=== PATIENT | male | born 1985 | race Caucasian/White ===

== ENCOUNTER 2023-09-11 14:38 | Emergency (ER) | payer OTHER ==
[~2023-09-11] VITALS: Ht 182.9 cm; Wt 96.0 kg
[2023-09-11] MEDS: LIDOCAINE 2% MDV 20ML VIAL SC ONE (18:05)
[2023-09-11 18:56] VITALS: BP 130/82; TEMP 98.2; O2SAT 98
== END 2023-09-11 19:01 | disposition home or self-care (01) ==
LOC: M ED 14:38
DX: S01.112A Laceration without foreign body of left eyelid and periocular area, initial encounter (principal); X58.XXXA Exposure to other specified factors, initial encounter; Y92.9 Unspecified place or not applicable; Y93.9 Activity, unspecified; Y99.9 Unspecified external cause status; F17.290 Nicotine dependence, other tobacco product, uncomplicated

== ENCOUNTER 2024-01-08 09:25 | Day surgery (SDC) | payer OTHER ==
[~2024-01-08] VITALS: Ht 185.4 cm; Wt 95.1 kg
[~2024-01-08 09:25] MED LIST: ACETAMINOPHEN 1000MG 100ML IV BAG As Ordered ONE; LIDOCAINE 2% 100MG/5ML SDV (FOR ANES.) As Ordered ONE; LR 1,000 ML IV SCH; MIDAZOLAM INJ 2MG/2ML VIAL As Ordered ONE; ONDANSETRON 4MG 2ML VIAL As Ordered ONE; fentaNYL 100 MCG/2 ML INJECTION As Ordered ONE; propofoL 200 MG/20 ML VIAL As Ordered ONE
[2024-01-08] MEDS ORDERED: ROCURONIUM BROMIDE 50MG/5ML VIAL As Ordered ONE (09:57)
[2024-01-08] MEDS ORDERED: MIDAZOLAM INJ 2MG/2ML VIAL IV PRN (10:20)
[2024-01-08] MEDS ORDERED: LIDOCAINE 1% SDV 5ML VIAL PN ONE (10:20)
[2024-01-08] MEDS ORDERED: ROPIvacaine 0.5% 30ML VIAL PN ONE (10:20)
[2024-01-08] MEDS ORDERED: fentaNYL 100 MCG/2 ML INJECTION IV PRN (10:20)
[2024-01-08] MEDS: TRANEXAMIC ACID 100 MG/ML 10ML VIAL IV ONE (11:05)
[2024-01-08] MEDS: TRANEXAMIC ACID 100 MG/ML 10ML VIAL As Ordered ONE (11:30)
[2024-01-08] MEDS: ceFAZolin SOD 2 GM in IV 1 EA IV ONE (11:47)
[2024-01-08] MEDS: EPINEPHrine 1MG/ML INJ 30ML MD-VIAL As Ordered ONE (12:29)
[2024-01-08] MEDS ORDERED: MORPHINE 2 MG/ML 1ML VIAL IV PRN (12:35)
[2024-01-08] MEDS ORDERED: ONDANSETRON 4MG 2ML VIAL IV PRN (12:35)
[2024-01-08] MEDS: fentaNYL 100 MCG/2 ML INJECTION IV PRN (12:51)
[2024-01-08] MEDS ORDERED: LR 1,000 ML IV SCH (12:55)
[2024-01-08] MEDS: oxyCODONE 5MG TAB PO PRN (13:12)
[2024-01-08 13:43] VITALS: BP 146/65; TEMP 97; O2SAT 98
== END 2024-01-08 14:11 | disposition home or self-care (01) ==
LOC: M SDC 09:25
PROVIDERS: ATTEND Orthopaedic Surgery
DX: M23.232 Derangement of other medial meniscus due to old tear or injury, left knee (principal); M22.42 Chondromalacia patellae, left knee; M94.262 Chondromalacia, left knee; F17.290 Nicotine dependence, other tobacco product, uncomplicated
CPT/HCPCS: 29881; J0131; J0171; J0665; J0690; J1100; J2250; J2405; J3010